=== PATIENT | male | born 1975 | race Caucasian/White ===

== ENCOUNTER 2024-03-24 08:59 | Day surgery (SDC) | payer OTHER, SELFPAY ==
--- NOTE | 2024-03-24 | PATH_ITS ---
[facility] Accession Number: [id number] No. of containers..06 Tissue . 01 Material submitted: . PART A: colon - CECAL POLYP PART B: colon - ASCENDING COLON POLYP PART C: colon - MID TRANSVERSE COLON POLYP PART D: colon - PROXIMAL TRANSVERSE COLON POLYP PART E: colon - SIGMOID COLON POLYP PART F: rectum - RECTAL POLYP . 01 Diagnosis: A. CECAL POLYP: Tubular adenoma. . B. ASCENDING COLON POLYP: Tubular adenoma. . C. MID TRANSVERSE COLON POLYP: Tubular adenoma. . D. PROXIMAL TRANSVERSE COLON POLYP: Serrated polyp with focal crypt architectural features consistent with sessile serrated adenoma. . E. SIGMOID COLON POLYP: Tubular adenoma. . F. RECTAL POLYP: Hyperplastic polyp. SHASTA 03/28/2024 1111 Local . 01 Electronically signed: . Destiny Modi MD, Pathologist NPI- [id number] . 01 Gross description: . A. Received in formalin with two patient identifiers and cecal polyp, is a single asher soft tissue fragment, 1.8 cm in greatest dimension, submitted in A1. B. Received in formalin with two patient identifiers and ascending colon polyp, is a single asher and brown soft tissue fragment measuring 0.5 x 0.4 x 0.4 cm. Inked blue, bisected, and submitted entirely in B1. C. Received in formalin with two patient identifiers and mid transverse colon polyp, is a single asher soft tissue fragment, 1.6 cm in greatest dimension, submitted in C1. D. Received in formalin with two patient identifiers and transverse colon polyp proximal, are multiple asher and brown soft tissue fragments aggregating to 1.7 x 1.2 x 0.4 cm. Filtered and submitted in D1. E. Received in formalin with two patient identifiers and sigmoid colon polyp, is a single asher soft tissue fragment, 0.5 cm in greatest dimension, submitted in E1. F. Received in formalin with two patient identifiers and rectal polyp, are two asher and brown fragments of possible soft tissue ranging from 0.4-0.8 cm in greatest dimension, submitted in F1. (KB:[id number]) /MRV 03/25/2024 1724 Local . 01 Pathologist provided ICD-10: D12.0, D12.2, D12.3, D12.5, D12.8 . 01 CPT . 076314, 024838, [id number], 734441, [id number], [id number] Specimen Comment: A courtesy copy of this report has been sent to [phone] Performed at: [address] [id number] MD Arnold Rosales MD Phone: [phone]
[2024-03-24 09:22] VITALS: BP 171/101; PULSE 82; RESP 16; TEMP 36.2; O2SAT 98
[2024-03-24] MEDS: SODIUM CHLORIDE 0.9% 1,000 ML 84 ML IV (09:34)
--- NOTE | 2024-03-24 09:44 | PM.HP.1 ---
History of Present Illness History of Present Illness Date Patient Seen: 03/24/24 Time Patient Seen: 09:44 Chief complaint: Screening Colonoscopy Narrative: Wally is a 49 year old man who presents for a colonoscopy. He has never had one before. No family history of colon cancer. 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 His most recent platelet count was approximately 100,000. [facility] Social History Smoking Status: Former smoker alcohol intake: current Meds Home Medications and Allergies Home Medications Medication Instructions Recorded Confirmed Type telmisartan 20 mg tablet (Micardis) 20 mg PO Q DAY ##0 10/14/12 03/24/24 History metoprolol succinate 25 mg 25 mg PO DAILY 03/23/24 03/24/24 History tablet,extended release 24 hr prochlorperazine maleate 10 mg mg PO 03/23/24 History tablet Allergies Allergy/AdvReac Type Severity Reaction Status Date / Time No Known Drug Allergies Allergy Verified 03/24/24 09:27 Exam Vital Signs (past 8 hours): - 03/24/24 09:22 Temperature 97.1 F L Pulse Rate 82 Respiratory Rate 16 Blood Pressure 171/101 H Pulse Oximetry 98 Oxygen Delivery Method Room Air Oxygen Delivery Method Room Air Const General: No acute distress Resp Effort & Inspection: normal respiratory effort Assessment & Plan Assessment and plan (1) Colon cancer screening: Status: Acute Plan We reviewed the risks and benefits of colonoscopy for colon cancer screening. If he has any polyps that get removed we will place hemostatic clips to reduce the risk of bleeding. Time-Based Coding :: [TOTAL MINUTES] spent with patient and on the chart (including review of chart, obtaining history, exam, reviewing outside data, placing orders, documenting exam and treatment plan, and counseling patient) on [DATE].
--- NOTE | 2024-03-24 10:52 | PM.OP.COLON ---
Operative Date/Time/Diagnoses Date of procedure: 03/24/24 Time of procedure: 10:52 Pre-op diagnosis: Colon cancer screening Post-op diagnosis: same Procedure & Clinicians Study performed: Colonoscopy Same procedure as scheduled: Yes Surgeon: Jim Zhu Procedure Notes Procedure in detail: Surgeon: Jim Zhu MD Anesthesia: Geoffrey Zendejas D.O. Procedure: The patient was brought to the endoscopy suite, placed in left lateral decubitus position. The patient was connected to monitoring devices. A time-out was performed. Sedation was administered. Once the patient was adequately sedated, a digital rectal exam was performed and was normal. The scope was then inserted and advanced to the cecum where the appendiceal orifice was identified and photographed. The scope was then slowly withdrawn over greater than 6 minutes. The mucosa was thoroughly inspected. There was a 5 mm polyp in the cecum removed with hot snare. There was 7 mm polyp in the ascending colon removed with a hot snare. There was 1.5 cm sessile polyp in the proximal transverse colon removed in multiple passes with a hot snare. We also placed a hemostatic clip on the polypectomy site to ensure hemostasis. We injected some tattoo ink adjacent to the polypectomy scar. There was a 7 mm polyp in the mid transverse colon removed with a cold snare and a hemoclip was applied as well. There was a 5 mm polyp in the distal rectum removed with a hot snare. The scope was retroflexed in the rectum. The scope was straightened and removed. The patient was awakened and brought to recovery. Scope withdrawal time: 40 minutes Sedation time: 51 minutes EBL: 5 mL Findings: Multiple polyps as described above Post-procedure Disposition: PACU
[2024-03-24 10:53] VITALS: BP 119/71; PULSE 70; RESP 15; TEMP 36.2; O2SAT 97
[2024-03-24 11:00] VITALS: BP 137/81; PULSE 76; RESP 15; TEMP 36.2; O2SAT 97
[2024-03-24 11:06] VITALS: BP 139/78; PULSE 72; RESP 15; TEMP 36.2; O2SAT 98
== END 2024-03-24 11:30 | disposition home or self-care (01) ==
PROVIDERS: PCP Family Medicine; Referring Provider Surgery; Visit Provider Surgery
PROC: 0DJD8ZZ Inspection of Lower Intestinal Tract, Via Natural or Artificial Opening Endoscopic (ICD-10-PCS; CPT 45378; principal; 2024-03-24 10:15)
DX: Z12.11 Encounter for screening for malignant neoplasm of colon (principal); D12.2 Benign neoplasm of ascending colon; D12.0 Benign neoplasm of cecum; D12.5 Benign neoplasm of sigmoid colon; D12.3 Benign neoplasm of transverse colon; D12.8 Benign neoplasm of rectum
CPT/HCPCS: 45385; 45381; J2704